=== PATIENT | female | born 1985 | race Caucasian/White ===

== ENCOUNTER 2018-09-10 12:02 | Emergency (ER) | payer OTHER ==
[~2018-09-10] VITALS: Ht 167.6 cm; Wt 72.6 kg
[2018-09-10] MEDS ORDERED: PROZAC10 MG ORAL (12:14)
[2018-09-10] MEDS ORDERED: GABAPENTIN100 MG ORAL (12:14)
[2018-09-10] MEDS ORDERED: VALIUM2 MG ORAL (12:14)
[2018-09-10 12:23] VITALS: BP 141/74
--- NOTE | 2018-09-10 12:24 | NUR ---
ED Nurse Note: Pt came in from home due to coughing out blood tinged sputum since 09/08/18, pt stated pain on medial upper abdominal 11/07 harish. AOx4, HR >110, PA aware. Will cont to monitor.
[2018-09-10] MEDS ORDERED: Isovue-300 100ml vial INJ PRN (12:30)
[2018-09-10 12:58] LABS: HEMOGLOBIN 14.8 G/DL (12.0-16.0); MEAN CORPUSCULAR VOLUME 92 FL (80-99); PLATELET COUNT 174 K/UL (150-450); RED CELL DISTRIBUTION WIDTH 11.1 % (11.6-14.8); WHITE BLOOD COUNT 15.6 K/UL (4.8-10.8)
--- NOTE | 2018-09-10 13:16 | Emergency Room Report ---
History of Present Illness General Chief Complaint: Upper Respiratory Illness Present Illness HPI 32-year-old female with history of alcohol abuse, traumatic brain injury and spinal cord injury all controlled by primary care physician here complaining of 2 days of blood tinged sputum and wheezing. Patient reports that she has been drinking alcohol on a nightly basis for the past few days reporting multiple bouts of vomiting however does not report any blood in her vomit. Complains of epigastric pain rating a 10 out of 10 without radiation. Denies diarrhea, constipation, blood in her stool. Denies fever and chills, congestion and sore throat. Patient complains of shortness of breath posttussive. She also has extensive history of anxiety and depression currently controlled. Appears stable with stable vital signs. Denies urinary symptoms, chest pain radiation, dizziness, headache, blurry vision, and all other associated symptoms. Denies to smoking tobacco or any drug use. (Ji Holguin) Allergies: Coded Allergies: No Known Allergies (Unverified , 09/10/18) Patient History Past Medical History: see triage record Past Surgical History: unable to obtain Pertinent Family History: none Social History: Reports: alcohol use Last Menstrual Period: july Now: No : 0 Immunizations: UTD Reviewed Nursing Documentation: PMH: Agreed; PSxH: Agreed (Ji Holguin) Review of Systems All Other Systems: negative except mentioned in HPI (Ji Holguin) Physical Exam Vital Signs Date Time Temp Pulse Resp B/P (MAP) Pulse Ox O2 Delivery O2 Flow Rate FiO2 09/10/18 12:09 99.3 116 18 157/91 (113) 98 Room Air Sp02 EP Interpretation: reviewed, normal General Appearance: alert, GCS 15, non-toxic, mild distress Eyes: bilateral eye normal inspection, bilateral eye PERRL ENT: normal ENT inspection, hearing grossly normal, normal pharynx, no angioedema, normal voice Neck: normal inspection, full range of motion, supple, thyroid normal, no meningismus Respiratory: chest non-tender, lungs clear, no rhonchi, no respiratory distress , no retraction, no accessory muscle use, no wheezing Cardiovascular #1: regular rate, rhythm, no murmur, tachycardia Gastrointestinal: no mass, no organomegaly, no peritonitis, no bruit, non- distended, guarding - Epigastric, other - Negative McBurney's and Rovsing Rectal: deferred Genitourinary: no CVA tenderness Musculoskeletal: normal inspection, back normal, digits/nails normal, gait/ station normal Neurologic: normal inspection, alert, oriented x3, responsive, manuscript reader III-XII nml as tested, motor strength/tone normal, DTRs symmetric Psychiatric: normal inspection, judgement/insight normal, memory normal Skin: no rash, palpation normal, normal color, normal turgor Lymphatic: normal inspection, no adenopathy (Ji Holguin) Medical Decision Making PA Attestation All my diagnosis and treatment plans were reviewed ad discussed with my supervising physician Dr. Fenton (Ji Holguin) Diagnostic Impression: Primary Impression: Pneumonia Qualified Codes: J18.1 - Lobar pneumonia, unspecified organism Additional Impressions: Fatty liver Hypokalemia History of spinal cord injury Abdominal pain Qualified Codes: R10.10 - Upper abdominal pain, unspecified ER Course 32-year-old female with history of alcohol abuse, traumatic brain injury and spinal cord injury all controlled by primary care physician here complaining of 2 days of blood tinged sputum and wheezing. Patient reports that she has been drinking alcohol on a nightly basis for the past few days reporting multiple bouts of vomiting however does not report any blood in her vomit. Complains of epigastric pain rating a 10 out of 10 without radiation. Denies diarrhea, constipation, blood in her stool. Denies fever and chills, congestion and sore throat. Patient complains of shortness of breath posttussive. She also has extensive history of anxiety and depression currently controlled. Appears stable with stable vital signs. Denies urinary symptoms, chest pain radiation, dizziness, headache, blurry vision, and all other associated symptoms. Denies to smoking tobacco or any drug use. Ddx considered but are not limited to: appendicitis, cholycisitis, gastritis, gasthroentritis, UTI, pylonephritis, SBO, diverticulitis, influenza with GI manifestation, MA, complication with , pneumothorax, pneumonia, pleural effusion Vital signs: are WNL, pt. is afebrile H&PE are most consistent with: Pneumonia, fatty liver ORDERS: abdominal CT, abdominal pain set, EKG, ED INTERVENTIONS: NS bolus, Zofran, Pepcid Patient was admited with diagnosis of pneumonia to Dr. Carey under supervision of DrStepan: Eliceo pt stable at time of admission WBC 16, elevated Neutrophil (Ji Holguin) ER Course Please see above note. Patient examined by me. She is still tachycardic and coughing and has pain. IV hydration is continued. Also morphine is administered. Oxygen saturation is good. Lactic acid is normal. Patient stable for medical floor admission and transfer. Potassium ordered. Contacted Dr. Parkinson for transfer. Laboratory Tests Test 09/10/18 12:40 09/10/18 13:00 09/10/18 13:05 09/10/18 13:15 White Blood Count 15.6 K/UL (4.8-10.8) H Red Blood Count 4.80 M/UL (4.20-5.40) Hemoglobin 14.8 G/DL (12.0-16.0) Hematocrit 44.0 % (37.0-47.0) Mean Corpuscular Volume 92 FL (80-99) Mean Corpuscular Hemoglobin 30.9 PG (27.0-31.0) Mean Corpuscular Hemoglobin Concent 33.7 G/DL (32.0-36.0) Red Cell Distribution Width 11.1 % (11.6-14.8) L Platelet Count 174 K/UL (150-450) Mean Platelet Volume 6.6 FL (6.5-10.1) Neutrophils (%) (Auto) % (45.0-75.0) Lymphocytes (%) (Auto) % (20.0-45.0) Monocytes (%) (Auto) % (1.0-10.0) Eosinophils (%) (Auto) % (0.0-3.0) Basophils (%) (Auto) % (0.0-2.0) Differential Total Cells Counted 100 Neutrophils % (Manual) 85 % (45-75) H Lymphocytes % (Manual) 5 % (20-45) L Monocytes % (Manual) 6 % (1-10) Eosinophils % (Manual) 0 % (0-3) Basophils % (Manual) 0 % (0-2) Band Neutrophils 4 % (0-8) Platelet Estimate Adequate Platelet Morphology Normal Red Blood Cell Morphology Normal Prothrombin Time 10.5 SEC (9.30-11.50) Prothrombin Time INR 1.0 (0.9-1.1) PTT 21 SEC (23-33) L Urine Color Yellow Urine Appearance Clear Urine pH 5 (4.5-8.0) Urine Specific [place] 1.025 (1.005-1.035) Urine Protein 3+ (NEGATIVE) H Urine Glucose (UA) Negative (NEGATIVE) Urine Ketones 4+ (NEGATIVE) H Urine Blood 1+ (NEGATIVE) H Urine Nitrite Negative (NEGATIVE) Urine Bilirubin Negative (NEGATIVE) Urine Urobilinogen 4 MG/DL (0.0-1.0) H Urine Leukocyte Esterase 1+ (NEGATIVE) H Urine RBC 0-2 /HPF (0 - 2) Urine WBC 0-2 /HPF (0 - 2) Urine Squamous Epithelial Cells Occasional /LPF Urine Bacteria Few /HPF (NONE) Urine Mucus Few /LPF (NONE/OCC) H Urine HCG, Qualitative Negative (NEGATIVE) Urine Opiates Screen Negative (NEGATIVE) Urine Barbiturates Screen Negative (NEGATIVE) Phencyclidine (PCP) Screen Negative (NEGATIVE) Urine Amphetamines Screen Negative (NEGATIVE) Urine Benzodiazepines Screen Positive (NEGATIVE) H Urine Cocaine Screen Negative (NEGATIVE) Urine Marijuana (THC) Screen Positive (NEGATIVE) H Sodium Level 137 MMOL/L (136-145) Potassium Level 3.2 MMOL/L (3.5-5.1) L Chloride Level 102 MMOL/L (98-107) Carbon Dioxide Level 23 MMOL/L (21-32) Anion Gap 12 mmol/L (5-15) Blood Urea Nitrogen 7 mg/dL (7-18) Creatinine 0.9 MG/DL (0.55-1.30) Estimate Glomerular Filtration Rate > 60 mL/min (>60) Glucose Level 130 MG/DL (74-106) H Calcium Level 9.2 MG/DL (8.5-10.1) Total Bilirubin 1.4 MG/DL (0.2-1.0) H Direct Bilirubin 0.3 MG/DL (0.0-0.3) Aspartate Amino Transferase (AST) 25 U/L (15-37) Alanine Aminotransferase (ALT) 28 U/L (12-78) Alkaline Phosphatase 42 U/L (46-116) L Total Creatine Kinase 62 U/L (26-308) Creatine Kinase MB 0.6 NG/ML (0.0-3.6) Creatine Kinase MB Relative Index 0.9 Troponin I 0.000 ng/mL (0.000-0.056) Total Protein 7.5 G/DL (6.4-8.2) Albumin 3.3 G/DL (3.4-5.0) L Globulin 4.2 g/dL Albumin/Globulin Ratio 0.8 (1.0-2.7) L Lipase 61 U/L (73-393) L Serum Alcohol < 3 mg/dL Lactic Acid Level 1.30 mmol/L (0.4-2.0) (Kieran Casey MD) EKG Diagnostic Results Rate: tachycardiac Rhythm: NSR ST Segments: no acute changes Other Impression No acute ST changes noted (Ji Holguin) Rhythm Strip Diag. Results EP Interpretation: yes Rhythm: no PVC's, no ectopy, other - Tachycardia (Kieran Casey MD) Chest X-Ray Diagnostic Results Chest X-Ray Diagnostic Results : Chest X-Ray Ordered: Yes # of Views/Limited/Complete: 1 View Indication: Chest Pain EP Interpretation: Yes PA Xray: Interpretation reviewed, by supervising MD, and agrees with findings. Interpretation: no pneumothorax, no acute cardiopulmonary disease, other - inFiltrates noted in the left lower lobe and perihilar Impression: Other - inflitrates LLL and perihilar Electronically Signed by: Ji Washington PA-C (Ji Holguin) Chest X-Ray Diagnostic Results : Electronically Signed by: Jesus Reno documentation of Xray reviewed by me and is accurate, Kieran Casey MD (Kieran Casey MD) CT/MRI/US Diagnostic Results CT/MRI/US Diagnostic Results : Imaging Test Ordered: CT abdomen pelvis with contrast Impression CT ABDOMEN & PELVIS With Contrast: Groundglass and airspace infiltrates in lingula and left lower lobe. No evidence of appendicitis. No colitis or bowel obstruction. Fatty liver. No radiodense gallstones or pancreatitis. Kidneys are unremarkable. Catheter decompresses the bladder. Small amount of fluid in the pelvis. (Ji Holguin) CT/MRI/US Diagnostic Results : Imaging Test Ordered: Abdomen pelvis Impression No surgical pathology. Fatty liver (Kieran Casey MD) Last Vital Signs Date Time Temp Pulse Resp B/P (MAP) Pulse Ox O2 Delivery O2 Flow Rate FiO2 7/14/19 12:24 114 18 Room Air 09/10/18 12:23 99.3 141/74 99 (Ji Holguin) Last Vital Signs Date Time Temp Pulse Resp B/P (MAP) Pulse Ox O2 Delivery O2 Flow Rate FiO2 09/10/18 15:37 101.0 110 25 145/88 100 Room Air Status: improved (Kieran Casey MD) Disposition: XFER SHT-TRM HOSP Condition: Serious - But stable for transfer Referrals: NON PHYSICIAN (PCP) Ji Holguin Sep 10, 2018 13:16 Kieran Casey MD Sep 10, 2018 15:19
[2018-09-10 13:23] LABS: APPEARANCE,URINE CLEAR; BILIRUBIN, URINE NEGATIVE (NEGATIVE); GLUCOSE, URINE (UA) NEGATIVE (NEGATIVE); KETONES,URINE 4+ (NEGATIVE); LEUKOCYTE ESTERASE ,URINE 1+ (NEGATIVE); NITRITE,URINE NEGATIVE (NEGATIVE); PH,URINE 5 (4.5-8.0); PROTEIN,URINE 3+ (NEGATIVE); UROBILINOGEN,URINE 4 MG/DL (0.0-1.0)
[2018-09-10 13:27] LABS: COLOR,URINE YELLOW
[2018-09-10 13:40] LABS: ANION GAP 12 mmol/L (5-15); BLOOD UREA NITROGEN 7 mg/dL (7-18); CALCIUM 9.2 MG/DL (8.5-10.1); CARBON DIOXIDE 23 MMOL/L (21-32); CHLORIDE 102 MMOL/L (98-107); CREATININE 0.9 MG/DL (0.55-1.30); POTASSIUM 3.2 MMOL/L (3.5-5.1); SODIUM 137 MMOL/L (136-145)
[2018-09-10 13:52] LABS: ALANINE AMINOTRANSFERASE 28 U/L (12-78); ALBUMIN 3.3 G/DL (3.4-5.0); ALBUMIN/GLOBULIN RATIO 0.8 (1.0-2.7); ALKALINE PHOSPHATASE 42 U/L (46-116); ASPARTATE AMINO TRANSFERASE 25 U/L (15-37); BILIRUBIN,TOTAL 1.4 MG/DL (0.2-1.0); CKMB 0.6 NG/ML (0.0-3.6); CREATINE KINASE 62 U/L (26-308)
[2018-09-10 13:53] LABS: BILIRUBIN,DIRECT 0.3 MG/DL (0.0-0.3)
--- NOTE | 2018-09-10 13:57 | NUR ---
ED Nurse Note: Pt's medications checked and put in ER med box.
--- NOTE | 2018-09-10 14:09 | NUR ---
ED Nurse Note: Pt down to CT for imaging. Consent signed by pt and witnessed by RN.
[2018-09-10 14:20] VITALS: BP 142/87
--- NOTE | 2018-09-10 14:22 | NUR ---
ED Nurse Note: Pt back from CT, no sign of acute distress.
--- NOTE | 2018-09-10 14:25 | NUR ---
ED Nurse Note: Pt reported chills, oral temperature checked: 101.8F, PA notified.
[2018-09-10] MEDS ORDERED: Morphine Sulfate 2mg/ml Inj(IV/IM USE ONLY) IVP ONE (15:00)
--- NOTE | 2018-09-10 15:36 | NUR ---
ED Nurse Note: Reprot given to SHRUTHI Ham at [facility]. [employer] personels at bedside for transportation.
[2018-09-10 15:37] VITALS: BP_SYST 142; BP_SYST 145; BP_DIAS 87; BP_DIAS 88
--- NOTE | 2018-09-11 09:32 | Diagnostic Imaging Report ---
Clinical Indication: Abdominal pain Technique: Patient given oral contrast. IV administration nonionic contrast. Venous phase spiral acquisition obtained through the abdomen and pelvis. Multiplanar reconstructions were generated. Total dose length product 1055 mGycm. CTDIvol(s) 18 mGy. Dose reduction achieved using automated exposure control Comparison: none Findings: The appendix is upper limits normal in caliber but contains gas and there is no periappendiceal inflammation. No evidence of diverticulosis or diverticulitis. A few proximal small bowel loops are somewhat prominent, but no transition point is demonstrated. Ingested contrast has traversed only a portion of the small bowel. There is a small amount of free fluid within the pelvis. No free intraperitoneal gas or no small bowel wall thickening. Distal esophagus, stomach, duodenum are unremarkable. The liver it is slightly hypoattenuating, consistent with mild fatty change. The gallbladder, bile ducts, pancreas, spleen, adrenals, kidneys are unremarkable. No retroperitoneal or mesenteric mass or adenopathy. No pelvic mass or adenopathy. There is a Hu catheter within the bladder. There is considerable consolidation of much of the visualized left lower lobe. Some consolidation is also seen in the inferior left upper lobe. Posterior dependent compressive atelectatic changes are seen in the right lung. The bones are intact. There are minimal degenerative spondylosis changes at the lumbosacral junction. There is a compression fracture deformity of the T8 vertebral body. Impression: Fairly extensive consolidation of the visualized left lower lobe and inferior left upper lobe, consistent with pneumonia No definite acute abdominal or pelvic pathology Trace free pelvic fluid, most likely physiologic Mild hepatic hypoattenuation, consistent with fatty change Other findings as noted, including minimal lumbosacral degenerative spondylosis, Hu catheter T8 vertebral body compression fracture deformity, age indeterminate although suspect old given presence of sclerosis and degenerative change. Consider MRI for further evaluation if clinically relevant. The above findings agreement with the [facility] preliminary report, with minor variation The CT scanner at [facility] is accredited by the [employer] and the scans are performed using protocols designed to limit radiation exposure to as low as reasonably achievable to attain images of sufficient resolution adequate for diagnostic evaluation.
--- NOTE | 2018-09-11 11:54 | Diagnostic Imaging Report ---
Indication: Chest pain Technique: One view of the chest Comparison: none Findings: There is suggestion of peripheral infiltrate in the left mid and lower lung. Right lung is clear. There is slight blunting of left costophrenic sulcus. The heart size is normal. Impression: Left mid and lower lung infiltrate, likely pneumonia Possible small associated pleural effusion
== END 2018-09-10 15:37 | disposition short-term general hospital (02) ==
LOC: EMR 12:49
DX: J18.1 Lobar pneumonia, unspecified organism (principal); K76.0 Fatty (change of) liver, not elsewhere classified; E87.6 Hypokalemia; R10.10 Upper abdominal pain, unspecified; F41.9 Anxiety disorder, unspecified; F32.9 Major depressive disorder, single episode, unspecified; R00.0 Tachycardia, unspecified
CPT/HCPCS: 36415; 71045; 74177; 80053; 80307; 80329; 81003; 81025; 82248; 82550; 82553; 83605; 83690; 84484; 85007; 85025; 85610; 85730; 86850; 86900; 86901; 87040; 93005; 96361; 96374; 96375; 96376; 99284; J2270; J2405; Q9967; S0028; J8499